=== PATIENT | male | born 1970 | race Caucasian/White ===

== ENCOUNTER 2018-10-08 00:46 | Inpatient (IN) | payer OTHER ==
[~2018-10-08] VITALS: Ht 175.3 cm; Wt 85.3 kg
[~2018-10-08 00:46] MED LIST: ASPI-231 PO; HYDR-4683 PO; LISI-646 PO; METO100T87 PO; PRAS10TA PO; Pantoprazole Sodium Sesquihydr PO
[2018-10-08] MEDS ORDERED: ONDANSETRON HCL 4 MG/2 ML VIAL IV ONE ×3 (01:30→08:00)
[2018-10-08] MEDS ORDERED: MORPHINE SULFATE 4 MG/ML SYR/VIAL IV ONE ×3 (01:30→08:00)
[2018-10-08] MEDS ORDERED: ASPirin 325 MG TAB PO ONE (01:30)
[2018-10-08] MEDS ORDERED: cloNIDine HCL 0.1 MG TAB PO ONE (01:30)
[2018-10-08 01:39] LABS: Basophils # (auto) 0 uL; Basophils % (auto) 0.4 % (0.0-2.0); Eosinophils # (auto) 0.2 uL; Eosinophils % (auto) 2.1 % (0.0-7.0); Hematocrit 43.6 % (41.0-53.0); Hemoglobin 15.2 g/dL (13.5-17.5); Lymphocytes # (auto) 2.2 uL; Lymphocytes % (auto) 23.8 % (10.0-50.0); Mean Corpuscular Hemoglobin 36.6 pg (28.0-32.0); Mean Corpuscular Hgb Conc. 34.8 g/dL (32.0-36.0); Mean Corpuscular Volume 105.1 fL (80.0-100.0); Monocytes # (auto) 0.6 uL; Monocytes % (auto) 6.9 % (0.0-12.0); Neutrophils # (auto) 6.3 uL; Neutrophils % (auto) 66.8 % (37.0-80.0); Platelet Count (auto) 215 10^3/uL (140-450); Red Blood Cells 4.15 10^6/uL (4.5-5.90); Red Cell Distribution Width 13.1 % (11.8-14.3); White Blood Cell 9.4 10^3/uL (4.4-10.8)
[2018-10-08 01:52] LABS: Chloride 105 mmol/L (98-107); Sodium 139 mmol/L (136-145)
[2018-10-08 01:56] LABS: Albumin 3.6 g/dL (3.4-5.0); Anion Gap 8 (5-15); Blood Urea Nitrogen 12 mg/dL (7-18); Calcium 9.1 mg/dL (8.5-10.1); Carbon Dioxide 26 mmol/L (21-32); Glucose 96 mg/dL (74-106); Lipase 937 U/L (73-393); Magnesium 2.1 mg/dL (1.6-2.6)
[2018-10-08 01:59] LABS: Alanine Aminotransferase 66 U/L (16-61); Aspartate Aminotransferase 59 U/L (15-37); BUN/Creatinine Ratio 15.2; GFR African American 134 mL/min; GFR Non-African American 110 mL/min
[2018-10-08 02:02] LABS: Alkaline Phosphatase 85 U/L (45-117); Bilirubin, Total 0.4 mg/dL (0.2-1.0); Total Protein 7.5 g/dL (6.4-8.2)
[2018-10-08] MEDS ORDERED: VANCOMYCIN 1GM/250ML 250 ML IV ONE (08:00)
[2018-10-08] MEDS ORDERED: IOHEXOL 350 MG/ML 100ML IJ ONE (08:04)
[2018-10-08 08:44] LABS: Urine Bacteria NONE SEEN /hpf (None Seen); Urine Blood Negative /uL (Negative); Urine Mucus FEW (None Seen); Urine Specific Gravity 1.019 (1.001-1.035); Urine WBC 141 /hpf (0 - 3); Urine WBC Clumps PRESENT /hpf (None Seen)
[2018-10-08] MEDS ORDERED: SODIUM CHLORIDE 0.9% 1,000 ML IV SCH (08:45)
[2018-10-08] MEDS ORDERED: ENALAPRILAT 1.25 MG/ML-1ML VIAL IV PRN (08:45)
[2018-10-08] MEDS ORDERED: HYDROmorphone HCL 2 MG/ML VL IV PRN (08:45)
[2018-10-08] MEDS ORDERED: LORazepam 2MG/ML-1ML VIAL IV PRN (08:45)
[2018-10-08] MEDS ORDERED: cloNIDine 0.1 mg/24hr 7 DAY PATCH TD ONE (08:45)
[2018-10-08] MEDS ORDERED: NITROGLYCERIN 0.4 MG SL TAB SL PRN (08:45)
[2018-10-08] MEDS ORDERED: ONDANSETRON HCL 4 MG/2 ML VIAL IV PRN (08:45)
[2018-10-08] MEDS ORDERED: MORPHINE SULF INJ 2 MG/ML SYRINGE 1ML IV PRN (08:45)
[2018-10-08 09:35] LABS: Alcohol, Urine < 3.0 mg/dL (0-5); Amphetamine Screen, Urine NEGATIVE (NEGATIVE); Barbiturate Scree,Urine NEGATIVE (NEGATIVE); Benzodiazephine Screen, Urine NEGATIVE (NEGATIVE); Cannabinoid Screen, Urine POSITIVE (NEGATIVE); Cocaine Screen, Urine NEGATIVE (NEGATIVE); Opiate Scree,Urine POSITIVE (NEGATIVE); Phencyclidine Screen, Urine NEGATIVE (NEGATIVE)
[2018-10-08] MEDS ORDERED: hydrALAZINE HCL 10 MG TAB PO SCH (10:00)
[2018-10-08] MEDS ORDERED: PANTOPRAZOLE 40 MG/10 ML VIAL IV SCH (10:00)
[2018-10-08] MEDS ORDERED: NICOTINE 21MG/24 HR TOPICAL PATCH TD SCH (10:00)
--- NOTE | 2018-10-08 10:30 | NUR ---
PT ARRIVED TO MED SURG FLOOR
--- NOTE | 2018-10-08 10:36 | NUR ---
ORDER FOR TELE ADMIT AT [phone]...BUT TELE ADMIT NOTE AT 1030
[2018-10-08 11:12] VITALS: BP 159/102
[2018-10-08] MEDS ORDERED: MULTIPLE VITAMIN 10 ML, MAGNESIUM SULF SDV 50% 8 MEQ, THIAMINE INJ 100 MG in D5W/SOD CH... IV SCH (12:00)
[2018-10-08] MEDS ORDERED: hydrALAZINE HCL 20 MG/ML VL IV PRN (12:15)
[2018-10-08 12:32] VITALS: BP 149/97
[2018-10-08 13:00] VITALS: BP 162/94
[2018-10-08] MEDS ORDERED: MELO1TAB73 PO (16:15)
[2018-10-08] MEDS ORDERED: GABA100C PO (16:16)
[2018-10-08] MEDS ORDERED: ATOR20TA50 PO (16:17)
[2018-10-08] MEDS ORDERED: LISI-646 PO (16:17)
[2018-10-08] MEDS ORDERED: ERGO2000 PO ×2 (16:20)
--- NOTE | 2018-10-08 16:21 | NUR ---
HOME MEDS RECONCILED
[2018-10-08 17:00] VITALS: BP 149/102
--- NOTE | 2018-10-08 20:48 | NUR ---
PATIENT LEFT AMA: PATIENT SAID " I DON'T HAVE PAIN, I'M NOT NAUSEATED" "MY MOTHER IS IN THE HOSPITAL" "I'M LEAVING TO SEE MY MOTHER". PATIENT SIGNED AMA FORM, WITNESSED BY THIS WOOD STRIP BLOCK FLOOR INSTALLER. PATIENT LEFT A&OX4, DENIES PAIN,IN STABLE CONDITION, ACCOMPANIED BY GIRLFRIEND. CHARGE NURSE MADE AWARE.
--- NOTE | 2018-10-08 20:55 | NUR ---
ALL BELONGINGS ACCOUNTED FOR, GIRLFRIEND SAID SHE HAD PATIENT'S BELONGINGS THE WHOLE TIME PATIENT IS IN THE HOSPITAL.
== END 2018-10-08 21:06 | disposition left against medical advice (07) | DRG 440 ==
LOC: ER 00:51 → OVERFLOW 08:50 → CENTRAL 11:01
PROVIDERS: ADMIT Nurse Practitioner Acute Care; ATTEND Nurse Practitioner Acute Care
DX: K85.90 Acute pancreatitis without necrosis or infection, unspecified (principal); E78.00 Pure hypercholesterolemia, unspecified; E78.5 Hyperlipidemia, unspecified; F10.20 Alcohol dependence, uncomplicated; F17.210 Nicotine dependence, cigarettes, uncomplicated; I10 Essential (primary) hypertension; I25.10 Atherosclerotic heart disease of native coronary artery without angina pectoris; I25.2 Old myocardial infarction; K40.20 Bilateral inguinal hernia, without obstruction or gangrene, not specified as recurrent; Z79.82 Long term (current) use of aspirin; Z95.5 Presence of coronary angioplasty implant and graft; Z79.899 Other long term (current) drug therapy
CPT/HCPCS: 36415; 71045; 71275; 74176; 80053; 80307; 81001; 83605; 83690; 83735; 83880; 84484; 85025; 85379; 87040; 93005; 94761; 96361; 96365; 96375; 96376; C9113; G0378; J2405

== ENCOUNTER 2023-02-27 08:55 | Inpatient (IN) | payer OTHER ==
[~2023-02-27] VITALS: Ht 175.3 cm; Wt 83.2 kg
[2023-02-27] VITALS (9 sets, daily range): BP systolic 128–163; BP diastolic 68–101; PULSE 58–118; RESP 16–21; TEMP 98; O2SAT 94–98
[~2023-02-27 08:55] MED LIST changes: -ASPI-231 PO; +ASPI1TAB20 PO; +ATOR20TA50 PO; +ERGO2000 PO; +GABA100C PO; -HYDR-4683 PO; -LISI-646 PO; +LISI20TA56 PO; +MELO7.5T7 PO
[2023-02-27 09:13] LABS: Basophils # (auto) 0.1 10 ^3/uL (0-0.2); Eosinophils # (auto) 0.1 10 ^3/uL (0-0.8); Hemoglobin 17.3 g/dL (13.5-17.5); Monocytes # (auto) 0.6 10 ^3/uL (0-1.3); Nucleated Red Blood Cells % 0.1 %
[2023-02-27] MEDS ORDERED: NITROGLYCERIN 0.4 MG SL TAB SL ONE ×2 (09:15→10:30)
[2023-02-27] MEDS ORDERED: MORPHINE SULFATE 4 MG/ML SYR/VIAL IV ONE (09:15)
[2023-02-27] MEDS ORDERED: LABETALOL HCL 5 MG/ML 4ML SYRINGE IV ONE (09:15)
[2023-02-27] MEDS ORDERED: ONDANSETRON HCL 4 MG/2 ML VIAL IV ONE (09:15)
[2023-02-27 09:16] LABS: Basophils % (auto) 0.7 % (0.0-2.0); Eosinophils % (auto) 1.2 % (0.0-7.0); Hematocrit 51.1 % (41.0-53.0); Lymphocytes # (auto) 1.9 10 ^3/uL (0.4-5.4); Lymphocytes % (auto) 22.4 % (10.0-50.0); Mean Corpuscular Hgb Conc. 33.9 g/dL (32.0-36.0); Mean Corpuscular Volume 103.2 fL (80.0-100.0); Monocytes % (auto) 7.6 % (0.0-12.0); Neutrophils # (auto) 5.7 10 ^3/uL (1.6-8.6); Neutrophils % (auto) 68.1 % (37.0-80.0); Red Blood Cells 4.96 10^6/uL (4.5-5.90); Red Cell Distribution Width 13.6 % (11.8-14.3); White Blood Cell 8.4 10^3/uL (4.4-10.8)
[2023-02-27 09:36] LABS: Alanine Aminotransferase 82 U/L (7-40); Alkaline Phosphatase 87 U/L (46-116); Calcium 9.5 mg/dL (8.5-10.1); Chloride 102 mmol/L (98-107)
[2023-02-27 09:37] LABS: Albumin 4.5 g/dL (3.2-4.8); Anion Gap 7.7 (5-15); Aspartate Aminotransferase 59 U/L (13-40); Bilirubin, Total 0.6 mg/dL (0.2-1.0); Blood Alcohol < 3.0 mg/dL (<10); Carbon Dioxide 25.3 mmol/L (20-30); Glucose 130 mg/dL (74-106); Magnesium 1.5 mg/dL (1.6-2.6); Potassium 3.8 mmol/L (3.5-5.1); Sodium 135 mmol/L (136-145); Total Protein 7.6 g/dL (5.7-8.2)
[2023-02-27 09:45] LABS: BUN/Creatinine Ratio 8.8 (10.0-20.0); Blood Urea Nitrogen 7 mg/dL (9-23)
[2023-02-27 10:15] LABS: INR 1.04 (0.9-1.15); Partial Thromboplastin Time 29.9 SEC (24.5-34.5); Prothrombin Time 10.9 sec (9.3-11.8)
[2023-02-27] MEDS ORDERED: HYDROmorphone HCL 2 MG/ML VL/or syr IV ONE (10:30)
[2023-02-27] MEDS ORDERED: HEPARIN SODIUM (PORCINE) 5000 UNITS/ML 1ML VIAL IV ONE (10:30)
[2023-02-27 11:02] LABS: Urine Bacteria FEW /hpf (None Seen); Urine Blood Negative /uL (Negative); Urine Clarity Clear (Clear); Urine Color Colorless (Yellow); Urine Protein, UAD Negative (Negative); Urine Specific Gravity 1.007 (1.001-1.035); Urine Urobilinogen Normal (Negative); Urine WBC 1 /hpf (0 - 3); Urine pH 6.5 (5.0-8.0)
[2023-02-27 11:07] LABS: Amphetamine Screen, Urine Neg (NEGATIVE)
[2023-02-27 11:08] LABS: Barbiturate Scree,Urine Neg (NEGATIVE); Benzodiazephine Screen, Urine Neg (NEGATIVE); Cannabinoid Screen, Urine Pos (NEGATIVE); Cocaine Screen, Urine Neg (NEGATIVE); Opiate Scree,Urine Neg (NEGATIVE); Phencyclidine Screen, Urine Neg (NEGATIVE)
[2023-02-27] MEDS ORDERED: LIDOCAINE 2%HCL (LOCAL ANESTH.) INJ 20ML MDV ONE (11:58)
[2023-02-27] MEDS ORDERED: IODIXANOL 320MG/ML 100ML BTL IV ONE ×2 (11:58→13:06)
[2023-02-27] MEDS ORDERED: ANGIOMAX 250 MG VIAL IV ONE (12:19)
[2023-02-27] MEDS ORDERED: fentaNYL CITRATE 100 MCG/2 ML VL ONE (12:19)
[2023-02-27] MEDS ORDERED: HEPARIN SODIUM (PORCINE) 5000 UNITS/ML 1ML VIAL ONE (12:19)
[2023-02-27] MEDS ORDERED: VERAPAMIL 2.5MG/ML INJ 2ML VIAL IV ONE (12:19)
[2023-02-27] MEDS ORDERED: MIDAZOLAM HCL 2MG/2ML 2ml VIAL (1mg/ml) ONE (12:20)
[2023-02-27] MEDS ORDERED: SODIUM CHL 0.9% 50 ML ONE (12:20)
[2023-02-27] MEDS ORDERED: hydrALAZINE HCL 20 MG/ML VL ONE (13:07)
[2023-02-27] MEDS ORDERED: NITROGLYCERIN 0.4 MG SL TAB SL PRN (13:15)
[2023-02-27] MEDS ORDERED: MORPHINE SULFATE INJ 2 MG/ml SYRG IV PRN (13:15)
[2023-02-27] MEDS ORDERED: TICAGRELOR 90 MG TAB ONE (13:19)
[2023-02-27] MEDS: ONDANSETRON HCL 4 MG/2 ML VIAL IV SCH ×2 (14:03→17:52)
[2023-02-27] MEDS ORDERED: DEXTROSE (50%) 50ML SYRG IV PRN (16:15)
[2023-02-27] MEDS: ACCU-CHEK COMFORT CURVE STRIP VI SCH (17:52)
[2023-02-27] MEDS: InsuLIN REG 1unit/0.01ml Soln (100units/ml) SC SCH (17:53)
[2023-02-27] MEDS ORDERED: CLOPIDOGREL BISULFATE 75 MG TAB PO ONE (21:00)
[2023-02-27] MEDS: hydrALAZINE HCL 20 MG/ML VL IV PRN (22:13)
[2023-02-28] VITALS (11 sets, daily range): BP systolic 123–161; BP diastolic 71–92; PULSE 54–130; RESP 17–18; TEMP 97.6–98.2; O2SAT 97–98
[2023-02-28] MEDS: ACCU-CHEK COMFORT CURVE STRIP VI SCH ×3 (06:00→12:00)
[2023-02-28] MEDS: InsuLIN REG 1unit/0.01ml Soln (100units/ml) SC SCH ×3 (06:00→12:00)
[2023-02-28] MEDS: ONDANSETRON HCL 4 MG/2 ML VIAL IV SCH ×3 (06:00→11:34)
[2023-02-28] MEDS ORDERED: CLOPIDOGREL BISULFATE 75 MG TAB PO SCH (10:00)
[2023-02-28] MEDS ORDERED: ASPirin 81 mg TAB PO SCH (10:00)
[2023-02-28] MEDS ORDERED: ASPI-325 PO (12:40)
[2023-02-28] MEDS ORDERED: CLOP75TA70 PO (12:40)
[2023-02-28] MEDS: hydrALAZINE HCL 20 MG/ML VL IV PRN (13:52)
[2023-02-28] MEDS ORDERED: METOPROLOL SUCCINATE XL 50 MG TAB PO ONE (15:00)
== END 2023-02-28 16:45 | disposition home or self-care (01) | DRG 247 ==
LOC: ER 08:55 → TELE 13:12 → TELE-EAST 15:18
PROVIDERS: ADMIT Internal Medicine; ATTEND Internal Medicine
PROC: 4A023N7 Measurement of Cardiac Sampling and Pressure, Left Heart, Percutaneous Approach (ICD-10-PCS; principal; 2023-02-27)
PROC: 027035Z Dilation of Coronary Artery, One Artery with Two Drug-eluting Intraluminal Devices, Percutaneous Approach (ICD-10-PCS; 2023-02-27)
PROC: B211YZZ Fluoroscopy of Multiple Coronary Arteries using Other Contrast (ICD-10-PCS; 2023-02-27)
DX: I21.4 Non-ST elevation (NSTEMI) myocardial infarction (principal); I25.10 Atherosclerotic heart disease of native coronary artery without angina pectoris; I10 Essential (primary) hypertension; F17.210 Nicotine dependence, cigarettes, uncomplicated; E78.5 Hyperlipidemia, unspecified; Z88.0 Allergy status to penicillin; Z91.199 Patient's noncompliance with other medical treatment and regimen due to unspecified reason
CPT/HCPCS: 36415; 71045; 80053; 80307; 80320; 81001; 82962; 83735; 83880; 84484; 85025; 85610; 85730; 86850; 86900; 86901; 92941; 93005; 93306; 93458; 99152; 99291; C1874; G0378; J2250; J2405; J3490; Q9967